=== PATIENT | female | born 1980 | race African-American/Black ===

== ENCOUNTER 2018-03-26 11:53 | Emergency (ER) | payer OTHER ==
[~2018-03-26] VITALS: Ht 165.1 cm; Wt 56.2 kg
[2018-03-26 11:56] VITALS: Ht 165.1 cm; Wt 56.2 kg
[2018-03-26] MEDS ORDERED: IBUPROFEN 200 MG TAB PO ONE (13:30)
[2018-03-26] MEDS ORDERED: LIDOCAINE 1% (MDV) 20 ML INJ SC ONE (13:30)
--- NOTE | 2018-03-26 13:41 | ERD ---
ER Documentation Chief Complaint Chief Complaint abcess on rt buttock x 2 days HPI 37 year old female presents to the ED complaining of worsening right buttock pain. patient states she felt like she had a pimple in the area, however, over the past two days the area has becoming increasing tender. she is unable to sit on the area secondary to pain. Symptoms are moderate to severe. She denies fevers, chills, N/V/D/C, dysuria, anal pain, or change in bowels. ROS All systems reviewed and are negative except as per history of present illness. Medications Home Meds Active Scripts Ibuprofen* (Motrin*) 400 Mg Tab, 400 MG PO Q6, #30 TAB Prov:OZ NAIR PA-C 03/26/18 Sulfamethoxazole/Trimethoprim* (Bactrim Ds* Tablet) 1 Each Tablet, 1 TAB PO BID, #14 TAB Prov:OZ NAIR PA-C 03/26/18 Cephalexin* (Keflex*) 500 Mg Capsule, 500 MG PO TID for 7 Days, CAP Prov:OZ NAIR PA-C 03/26/18 Allergies Allergies: Coded Allergies: No Known Allergy (Unverified , 03/26/18) PMhx/Soc Medical and Surgical Hx: pt denies Medical Hx FmHx Family History: No diabetes Physical Exam Vitals Vital Signs Date Temp Pulse Resp B/P (MAP) Pulse Ox O2 O2 Flow FiO2 Time Delivery Rate 03/26/18 98.6 74 18 124/74 98 Room Air 14:50 (91) 03/26/18 98.0 90 18 132/68 100 11:56 (89) Physical Exam Const: No acute distress Head: Atraumatic Eyes: Normal Conjunctiva ENT: Normal External Ears, Nose and Mouth. Neck: Full range of motion. No meningismus. Resp: Clear to auscultation bilaterally Cardio: Regular rate and rhythm, no murmurs Skin: No petechiae or rashes. Erythematous annular area of approximately 3.5cm diameter on the inner portion of the right buttock 5cm lateral to the anus. Area is indurated, no clear fluctuance, tender to palpation. Ext: No cyanosis, or edema Neur: Awake and alert Psych: Normal Mood and Affect Results 24 hrs Current Medications Medications Dose Sig/You Start Time Status Last (Trade) Ordered Route PRN Stop Time Admin Dose Reason Admin Lidocaine 20 ml ONCE ONCE 03/26/18 DC (Xylocaine SC 13:30 1% (Mdv) 20 03/26/18 13:31 ml) Ibuprofen 400 mg ONCE ONCE 03/26/18 DC 03/26/18 (Motrin) PO 13:30 13:46 03/26/18 13:31 Procedures/MDM 37-year-old female presenting to the emergency department for abscess to the right buttock. The full risks, benefits, alternatives were explained to the patient and she gave verbal agreement for incision and drainage. Abscess Incision and Drainage by Juan Manuel Knight with irrigation under my direct supervision: Location: Right buttock Anesthesia: Local 1% Lidocaine Technique: Irrigated. Disrupted loculations w/ instrumentation Packing: None Complications: Neurovascularly intact post procedure 48 hour wound check. Scar minimization instructions given. No evidence of life-threatening pathology at time of discharge. Pt/family in agreement with discharge plan/diagnosis. Pt/family advised to return immediately with any new or worsening symptoms. Follow-up with primary care physician within the next 1-2 days. Disclaimer: Inadvertent spelling and grammatical errors are likely due to EHR/dictation software use and do not reflect on the overall quality of patient care. Also, please note that the electronic time recorded on this note does not necessarily reflect the actual time of the patient encounter. Departure Diagnosis: Primary Impression: Abscess of right buttock Condition: Fair Additional Instructions: Follow up with your PCP within the next 1-3 days for a repeat evaluation. If you require a referral to a specialist, your Primary Care Provider may be able to provide this for you. In most patient cases, a referral is not required. If you have further questions regarding this matter, please ask your Primary Care Provider. Return the the emergency department immediately if symptoms worsen or change. If you have any questions regarding medications, ask your pharmacist or us before you leave. If any adverse reactions, occur while taking your medications, discontinue the treatment and return to the emergency department immediately. If any new or worsening symptoms, uncontrolled fevers, or other unexplained symptoms occur, return to the emergency department immediately. Take your medications as directed, and complete the entire course of treatment. OZ NAIR PA-C Mar 26, 2018 13:41
[2018-03-26] MEDS ORDERED: IBUP-1561 PO (14:20)
[2018-03-26] MEDS ORDERED: CEPH-443 PO (14:20)
[2018-03-26] MEDS ORDERED: SULF1TAB31 PO (14:20)
[2018-03-26 14:50] VITALS: BP 124/74; PULSE 74; RESP 18
== END 2018-03-26 14:50 | disposition home or self-care (01) ==
LOC: FTE 11:53
DX: L02.31 Cutaneous abscess of buttock (principal)
CPT/HCPCS: 10060; Z7502; Z7610

== ENCOUNTER 2018-03-28 10:03 | Emergency (ER) | payer OTHER ==
[~2018-03-28] VITALS: Ht 167.6 cm; Wt 58.3 kg
[~2018-03-28 10:03] MED LIST: CEPH-443 PO; IBUP-1561 PO; SULF1TAB31 PO
[2018-03-28 10:09] VITALS: BP 151/71; PULSE 81; RESP 20; Ht 167.6 cm; Wt 58.3 kg
[2018-03-28] MEDS ORDERED: MUPI22OI2 TOP (12:21)
--- NOTE | 2018-03-28 12:23 | ERD ---
ER Documentation Chief Complaint Chief Complaint Patient here for a wound check HPI 37-year-old female presents for recheck on right buttock abscess incised and drained 2 days ago. She has resolution of pain. She denies fevers, vomiting, active discharge or bleeding. She states that the wound was not packed. She also has complains of some redness and swelling on the tip of her nose or in her nostril at the time that the buttock abscess started. ROS All systems reviewed and are negative except as per history of present illness. Medications Home Meds Active Scripts Mupirocin* (Bactroban*) 2% -22 Gram Oint...g., 1 APPLIC TOP TID for 7 Days, #1 TUB SITE OF APPLICATION: Prov:JAME FORD MD 03/28/18 Ibuprofen* (Motrin*) 400 Mg Tab, 400 MG PO Q6, #30 TAB Prov:OZ NAIR PA-C 03/26/18 Sulfamethoxazole/Trimethoprim* (Bactrim Ds* Tablet) 1 Each Tablet, 1 TAB PO BID, #14 TAB Prov:OZ NAIR PA-C 03/26/18 Cephalexin* (Keflex*) 500 Mg Capsule, 500 MG PO TID for 7 Days, CAP Prov:OZ NAIR PA-C 03/26/18 Allergies Allergies: Coded Allergies: No Known Allergy (Unverified , 03/26/18) PMhx/Soc History of Surgery: Yes (breast reduction,trauma ) Anesthesia Reaction: No Hx 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 Minimal tenderness and redness near the tip of the nose without fluctuance, discharge, significant swelling. Neck: Full range of motion. No meningismus. Resp: Clear to auscultation bilaterally Cardio: Regular rate and rhythm, no murmurs Abd: Soft, non tender, non distended. Normal bowel sounds Skin: No petechiae or rashes. Right buttock healing abscess with minimal surrounding redness and induration. No bleeding or discharge or residual fluctuance. Back: No midline or flank tenderness Ext: No cyanosis, or edema Neur: Awake and alert Psych: Normal Mood and Affect Procedures/MDM Patient presents for recheck on right buttock abscess which appears to be healing without complications. She has some mild redness on her nose consistent with likely MRSA colonization. She will be discharged home with continuation of antibiotics. We will add Bactroban ointment by request in the nostrils. We will administer a prescription for Hibiclens to use in the shower 2-3 times a week as well with instructions to clean surfaces, mother areas of household which may have MRSA. She should return for fevers, worsening redness, swelling, new worsening symptoms with primary care doctor. She has no signs of necrotizing fasciitis, cellulitis which is significant or recurrent abscess, sepsis. Departure Diagnosis: Primary Impression: Encounter for wound re-check Additional Impression: Abscess of right buttock Condition: Stable Patient Instructions: Mrsa Skin Infection, Suspected Or Confirmed Referrals: DOCTOR,NOT ON STAFF (PCP) Additional Instructions: Use Hibiclens and shower 2-3 times a week. Clean services at home. Recheck for worsening redness, swelling, fevers, new or worsening symptoms. JAME FORD MD Mar 28, 2018 12:23
== END 2018-03-28 12:42 | disposition home or self-care (01) ==
LOC: FTE 10:03
DX: L02.31 Cutaneous abscess of buttock (principal); Z87.891 Personal history of nicotine dependence
CPT/HCPCS: 99283